=== PATIENT | female | born 1965 | race Caucasian/White ===

== ENCOUNTER 2017-08-04 20:17 | Emergency (ER) | payer MEDICAID ==
[~2017-08-04] VITALS: Ht 165.1 cm; Wt 86.2 kg
[2017-08-04 20:20] VITALS: BP 122/68
[2017-08-04] MEDS ORDERED: Norco 5mg/325mg tab PO ONE (20:45)
[2017-08-04] MEDS ORDERED: ACETAMINOPHEN-1 EAC1 ORAL (22:01)
[2017-08-04 23:00] VITALS: BP 121/66
[2017-08-05 03:00] VITALS: BP 118/69
[2017-08-05 04:45] VITALS: BP 118/69
--- NOTE | 2017-08-05 09:13 | Diagnostic Imaging Report ---
Indication: Right femur pain Technique: XRAY Femur 2v R Comparison: None Findings: There is severe osteopenia limiting evaluation. There is no radiographically evident displaced fracture. Screws of the proximal femur are seen. The patella is markedly elevated. Impression: Severe osteopenia limiting evaluation but no radiographically evident displaced fracture. Further evaluation recommended as indicated. Elevated patella suggestive of insufficient patellar tendon. Findings are acuity indeterminate but possibly nonacute. Clinical correlation recommended. Further evaluation recommended as indicated. Screws of the proximal femur.
--- NOTE | 2017-08-05 09:22 | Diagnostic Imaging Report ---
Indication: Pelvic pain status post fall Technique: CT pelvis spine was performed utilizing automated exposure control without intravenous contrast material. Axial and coronal images were generated. CT dose: Total DLP 532 mGycm; CTDI vol 18.5 mGy Comparison: None Findings: Examination is limited by habitus, severe osteopenia and streak artifact from right femoral screws. No gross displaced fractures are seen. Right proximal femoral screws are present. There is spurring of the acetabula bilaterally. Rectus diastases is present. Right adnexal cystic lesion measures 7.9 x 6.1 cm. There is mild subcutaneous stranding of the right lateral flank. Bilateral iliac nodes are seen measuring up to 1.9 cm on the right. Impression: Limited examination as above. No gross displaced fracture or dislocation. MRI may be obtained for more sensitive evaluation. Right proximal femoral screws with adjacent streak artifact. Right adnexal cystic lesion measuring 7.9 x 6.1 cm. Ovarian epithelial neoplasm such as cystadenoma cannot be excluded. Correlation with pelvic ultrasound recommended. Other findings as above. Findings essentially concordant with the preliminary [employer] report. The CT scanner at [facility] is accredited by the [employer] and the scans are performed using protocols designed to limit radiation exposure to as low as reasonably achievable to attain images of sufficient resolution adequate for diagnostic evaluation.
--- NOTE | 2017-08-07 07:46 | Emergency Room Report ---
History of Present Illness General Chief Complaint: Multiple Trauma/Fall Source: Patient, EMS Present Illness HPI 51-year-old female presents ED for evaluation. Patient brought in by EMS. Patient states that she was moving from her wheelchair to bathtub and she fell, injuring her right hip and right leg. It occurred tonight. Denies hitting her head or LOC. Presenting with right hip pain and right leg pain. Throbbing, 8 out of 10, nonradiating. Unable to bear weight. No other aggravating relieving factors. Denies any other associated symptoms Allergies: Coded Allergies: CEPHALEXIN (Verified Allergy, Severe, 08/04/17) "I CAN'T BREATH", STATED THE PT. Patient History Past Medical History: none Past Surgical History: none Pertinent Family History: none Social History: Denies: smoking, alcohol use, drug use Last Menstrual Period: N/A Now: No Immunizations: UTD Reviewed Nursing Documentation: PMH: Agreed; PSxH: Agreed Nursing Documentation-PMH Hx Cardiac Problems: Yes Hx Asthma: No - LEUKEMIA, MS, NON-AMBULATORY Hx Seizures: Yes Review of Systems All Other Systems: negative except mentioned in HPI Physical Exam Vital Signs Date Time Temp Pulse Resp B/P (MAP) Pulse Ox O2 Delivery O2 Flow Rate FiO2 08/04/17 20:08 98.1 106 16 121/63 96 Room Air 98.1 Sp02 EP Interpretation: reviewed, normal General Appearance: no apparent distress, alert, GCS 15, non-toxic, obese Head: normocephalic Eyes: bilateral eye normal inspection, bilateral eye PERRL ENT: normal ENT inspection Neck: normal inspection Respiratory: normal inspection Cardiovascular #1: normal inspection Gastrointestinal: normal inspection Rectal: deferred Genitourinary: no CVA tenderness Musculoskeletal: decreased range of motion, tender - R hip Neurologic: alert, oriented x3, responsive, motor strength/tone normal, sensory intact, speech normal Psychiatric: normal inspection Skin: normal inspection Lymphatic: normal inspection Medical Decision Making Diagnostic Impression: Primary Impression: Contusion, hip and thigh Qualified Codes: S70.01XA - Contusion of right hip, initial encounter; S70.11XA - Contusion of right thigh, initial encounter ER Course Hospital Course 51-year-old female presents ED complaining of right hip and leg pain status post fall from bathtub today Differential diagnoses include: Fracture, dislocation, sprain, contusion Clinical course Patient placed on stretcher. After initial history and physical, I ordered pain medications and CT pelvis, right femur x-ray Xrays prelim read shows no acute fracture/dislocation. CT pelvis unremarkablehardware in place in right femoral head On reassessment pain improved. Ambulating in ED Diagnosis -hip and thigh contusion Stable and discharged to home with prescription for Tylenol #3. apply ice, keep elevated. weight bear as tolerated. Followup with PMD. Return to ED if symptoms recur or worsen Other X-Ray Diagnostic Results Other X-Ray Diagnostic Results : X-Ray ordered: Right femur # of Views/Limited Vs Complete: 3 View Indication: Pain EP Interpretation: Yes Interpretation: no dislocation, no soft tissue swelling, no fractures Impression: No acute disease Electronically Signed by: Electronically signed by Bernardino Sinha MD CT/MRI/US Diagnostic Results CT/MRI/US Diagnostic Results : Imaging Test Ordered: CT pelvis Impression no acute fracture, no dislocation Last Vital Signs Date Time Temp Pulse Resp B/P (MAP) Pulse Ox O2 Delivery O2 Flow Rate FiO2 08/05/17 04:45 98.7 78 15 118/69 97 Room Air 98.7 Disposition: HOME, SELF-CARE Condition: Stable Scripts Acetaminophen With Codeine (T#3) (TYLENOL #3 TAB*) Y Tab 1 TAB ORAL Q8H PRN for For Pain, #20 TAB Prov: BERNARDINO SINHA M.D. 08/04/17 Referrals: [facility],REFERRING (PCP) Patient Instructions: Hip Pain BERNARDINO SINHA M.D. Aug 07, 2017 07:46
== END 2017-08-05 04:45 | disposition home or self-care (01) ==
LOC: EDBD 20:17 → EMR 20:35
DX: S70.01XA Contusion of right hip, initial encounter (principal); W05.0XXA Fall from non-moving wheelchair, initial encounter; Y92.008 Other place in unspecified non-institutional (private) residence as the place of occurrence of the external cause; Z85.6 Personal history of leukemia; Z88.8 Allergy status to other drugs, medicaments and biological substances
CPT/HCPCS: 72192; 99282